=== PATIENT | female | born 1970 | race Caucasian/White ===

== ENCOUNTER 2019-09-13 13:15 | Emergency (ER) | payer OTHER ==
--- NOTE | 2019-09-13 13:26 | PDOC ---
Attending Attestation - Resident Resident Name: Eliana Walton - ED Attending Attestation I have performed the following: I have examined & evaluated the patient, The case was reviewed & discussed with the resident, I agree w/resident's findings & plan, Exceptions are as noted - HPI HPI: 09/13/19 13:23 49yo female with L hand with middle and ring finger lacerations. Pt was cutting a duck when she cut her fingers. Pt with 2 lacerations - 4th digit on the distal dip about 1cm in length without active bleeding, 3rd digit with 1.5cm lac to the volar aspect of the DIP joint. Tetanus is not utd. No other complaints. - Physicial Exam PE: 09/13/19 13:24 Gen: [id number], nad hand: L hand with 1.5cm laceration without active bleeding to the DIP of the 3rd digit on the palmar aspect of the hand, L hand with 1cm lac to the DIP of the 4th digit palmar aspect of the hand, no active bleeding, able to fully range the digits, superficial laceration with scant exposure of the subcutaneous fat, sensation intact, brisk cap refill - Medical Decision Making 09/13/19 13:25 a/p: 49yo female with 2 finger lac -will need suture repair -will need tetanus updated -will need abx 09/13/19 14:27 resident repairing the finger lacerations 09/13/19 15:10 lac has been repaired by the resident and the patient was placed in finger splints local wound care will place on abx given she was cutting into a duck and raw meat stable for dc to home Discharge - Discharge Information Problems reviewed: Yes Clinical Impression/Diagnosis: Laceration of finger of left hand Condition: Stable - Admission No - Additional Discharge Information Prescriptions: Clindamycin [Cleocin -] 450 mg PO Q8H #63 capsule - Follow up/Referral Referrals: Amilcar Ferrera MD [Primary Care Provider] - - Patient Discharge Instructions Patient Printed Discharge Instructions: DI for Laceration Repair - Post Discharge Activity
[2019-09-13] MEDS ORDERED: DIPHTH,PERTUSS(ACELL),TET 0.5 ML DISP.SYRIN IM ONE ×2 (13:27→13:52)
[2019-09-13 13:49] VITALS: BP 146/86; PULSE 74; TEMP 97.8; BMI 32.8
--- NOTE | 2019-09-13 15:12 | PDOC ---
History of Present Illness - General Chief Complaint: Laceration Stated Complaint: FINGER LACERATIONS Time Seen by Provider: 09/13/19 13:21 History Source: Patient Exam Limitations: No Limitations - History of Present Illness Initial Comments: 09/13/19 15:16 49y F with PMH of HTN presenting to the ER today for laceration when cutting duck meat. Pt cut her 3d and 4th digits while cutting uncooked duck meat. Denies numbness/tingling, inability to bend fingers. Last tetanus was 12 years ago. PMD: Maisha PMH: see hpi Meds: Allergies: PCN Past History - Medical History Allergies/Adverse Reactions: Allergies Allergy/AdvReac Type Severity Reaction Status Date / Time Penicillins Allergy Unknown Verified 09/13/19 13:24 Home Medications: Ambulatory Orders Cholecalciferol (Vitamin D3) [Vitamin D3] 2,000 unit PO DAILY 09/13/19 Clindamycin [Cleocin -] 450 mg PO Q8H #63 capsule 09/13/19 Hydrochlorothiazide [Hctz -] 25 mg PO DAILY 09/13/19 COPD: No HTN: Yes - Psycho-Social/Smoking History Smoking History: Never smoked - Substance Abuse Hx (Audit-C & DAST Scrn) How often the patient has a drink containing alcohol: Never Score: In Men: 4 or > Positive; In Women: 3 or > Positive: 0 Screen Result (Pos requires Nsg. Audit-10AR): Negative In the last yr the pt used illegal drug/Rx for NonMed reason: No Score: Yes response is considered Positive: 0 Screen Result (Positive result requires Nsg. DAST-10): Negative Review of Systems - Review of Systems Constitutional: No: Symptoms Reported HEENTM: No: Symptoms Reported Respiratory: No: Symptoms reported Cardiac (ROS): No: Symptoms Reported ABD/GI: No: Symptoms Reported Integumentary: Yes: See HPI Neurological: No: Symptoms reported *Physical Exam - Vital Signs Last Vital Signs Temp Pulse Resp BP Pulse Ox 97.8 F 74 16 146/86 99 09/13/19 13:19 09/13/19 13:19 09/13/19 13:19 09/13/19 13:19 09/13/19 13:19 - Physical Exam General Appearance: Yes: Nourished, Appropriately Dressed. No: Apparent Distress HEENT: positive: EOMI, MARIO Neck: positive: Trachea midline, Supple Respiratory/Chest: positive: Lungs Clear, Normal Breath Sounds Cardiovascular: positive: Regular Rhythm, Regular Rate Comments:: 09/13/19 15:17 radial pulses 2+ Gastrointestinal/Abdominal: positive: Normal Bowel Sounds, Soft. negative: Tender Musculoskeletal: negative: CVA Tenderness Extremity: positive: Normal Capillary Refill. negative: Swelling, Calf Tenderness Integumentary: positive: Normal Color, Dry, Warm, Other (laceration to distal phlanges digits 3 and 4 on L plantar surface, superficial. 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 NML intact, Fully Oriented, Alert, Normal Mood/Affect, Normal Response, Motor Strength 5/5 Procedures - Laceration/Wound Repair Left Distal Volar Finger 3rd digit Wound Length: to 2.5 cm Wound Explored: clean Wound's Depth, Shape: superficial, linear Irrigated w/ Saline: Yes Anesthesia: 1% Lidocaine Wound Repaired With: Sutures Suture Size/Type: 6:0, 5:0 Number of Sutures: 7 Left Distal Volar 4th digit Wound Length: to 2.5 cm Wound Explored: clean Wound's Depth, Shape: superficial, linear Irrigated w/ Saline: Yes Anesthesia: 1% Lidocaine Wound Repaired With: Sutures Suture Size/Type: 6:0 Number of Sutures: 6 ED Treatment Course - Medications Given in the ED: ED Medications Discontinued Medications Generic Name Dose Route Start Last Admin Trade Name Freq PRN Reason Stop Dose Admin Diphtheria/Tetanus/Acell Pertussis 0.5 ml 09/13/19 13:27 09/13/19 14:00 Boostrix - IM 09/13/19 13:28 0.5 ml .ONCE ONE Administration Medical Decision Making - Medical Decision Making 09/13/19 15:25 49y F with pmh of htn presenting to the er for laceration to fingers while cutting uncooked duck meat. vitals wnl pe notable for 1cm superficial lacerations to distal L digits 3-4 near DIP joints. see procedure note. lacerations repaired with a total of 13 sutures. pt tolerated procedure well. since pt was cutting uncooked meat, will give antibiotics to cover for organisms. Clindamycin prescribed. splint applied since laceration overlying joint spaces however did not penetrate joint space. -boostrix given dc home, discussed care instructions and return precautions with patient. pt verbalized understanding. advised to return in 1 week for removal. Discharge - Discharge Information Problems reviewed: Yes Clinical Impression/Diagnosis: Laceration of finger of left hand Qualifiers: Encounter type: initial encounter Finger: unspecified finger Damage to nail status: without damage Foreign body presence: without foreign body Qualified Code(s): S61.219A - Laceration without foreign body of unspecified finger without damage to nail, initial encounter Condition: Good Disposition: HOME - Admission No - Additional Discharge Information Prescriptions: Clindamycin [Cleocin -] 450 mg PO Q8H #63 capsule - Follow up/Referral Referrals: Amilcar Ferrera MD [Primary Care Provider] - - Patient Discharge Instructions Patient Printed Discharge Instructions: DI for Laceration Repair Additional Instructions: You were seen in the ER today for a laceration to the fingers. This was repaired with a total of 13 stitches (6 on the ring finger and 7 on the middle finger). Keep the area clean and dry. You can leave it open to air after 24-48 hours. Use only water to clean. Keep the splints on for a week and tape your fingers together. You should return in 1 week to get the stitches out. I have prescribed an antibiotic for you to take. It is called Clindamycin. Take 3 capsules 3 times a day for 7 days. Come back to the ER if you notice infection: worsening swelling in the fingers, the fingers look like they are changing color, you cannot bend the fingers, you have fever, there is redness going to the hand/wrist or if any new or concerning symptom develops. Thank you - Post Discharge Activity
== END 2019-09-13 15:19 | disposition home or self-care (01) ==
LOC: FER 13:15 → SUPCPDRO 13:15 → FER 15:19
PROC: 3E0234Z Introduction of Serum, Toxoid and Vaccine into Muscle, Percutaneous Approach (ICD-10-PCS; principal; 2019-09-13)
DX: S61.213A Laceration without foreign body of left middle finger without damage to nail, initial encounter (principal); S61.215A Laceration without foreign body of left ring finger without damage to nail, initial encounter
CPT/HCPCS: 90715; 99284-25

== ENCOUNTER 2019-09-25 17:46 | Emergency (ER) | payer OTHER ==
--- NOTE | 2019-09-25 17:57 | PDOC ---
Suture Removal/Wound Check HPI - History of Present Illness Chief Complaint: Suture/Staple Removal(Here) Stated Complaint: SUTURE REMOVAL Time Seen by Provider: 09/25/19 17:56 History Source: Yes: Patient Exam Limitations: Yes: No Limitations Treated at: [facility] ED Date of Last ED visit: 09/13/19 - Previous ED Treatment Type of procedure performed on last visit: Yes: Laceration Repair Tetanus Immunization: Yes: Given at last ED visit Antibiotics Prescribed: Yes (Completed Clindamycin Course) - Onset of Previous Treatment Date of Occurence: 09/13/19 Past History - Medical History Allergies/Adverse Reactions: Allergies Allergy/AdvReac Type Severity Reaction Status Date / Time Penicillins Allergy Unknown Verified 09/13/19 13:24 Home Medications: Ambulatory Orders Cholecalciferol (Vitamin D3) [Vitamin D3] 2,000 unit PO DAILY 09/13/19 Hydrochlorothiazide [Hctz -] 25 mg PO DAILY 09/13/19 COPD: No HTN: Yes - Psycho-Social/Smoking History Smoking History: Never smoked *Physical Exam - Physical Exam General Appearance: Yes: Nourished, Appropriately Dressed. No: Apparent Distress HEENT: positive: Normal Voice Neck: positive: Supple Respiratory/Chest: negative: Respiratory Distress Cardiovascular: positive: Regular Rate Medical Decision Making - Medical Decision Making 25 y/o female presenting for removal of sutures to left second and third digits. Completed course of PO abx. Denies worsening redness, purulent discharge, difficulty opening or closing hands/fingers, or systemic signs of infection. Sutures removed without difficulty. Area appears to be healing without signs of infection. Case discussed with ED Attending Dr. Serge Vu M.D., PGY3 Emergency Medicine Resident Discharge - Discharge Information Problems reviewed: Yes Clinical Impression/Diagnosis: Visit for suture removal Condition: Good Disposition: HOME - Admission No - Follow up/Referral Referrals: Amilcar Ferrera MD [Primary Care Provider] - - Patient Discharge Instructions Patient Printed Discharge Instructions: DI for Suture Removal Print Language: COMORAN - Post Discharge Activity
[2019-09-25 17:59] VITALS: BP 150/96; BMI 32.7
--- NOTE | 2019-09-25 18:05 | PDOC ---
Attending Attestation - Resident Resident Name: Timothy Vu - ED Attending Attestation I have performed the following: I have examined & evaluated the patient, The case was reviewed & discussed with the resident, I agree w/resident's findings & plan, Exceptions are as noted - HPI HPI: 49YOF with h/o HTN who presents for suture removal from left index and middle finger. She was seen for laceration on 09/13/19 here at [facility]. She was given Tdap update at the initial encounter and also tx with course of abx which she notes having completed. She denies any sxs of infection or dehiscence, no redness, tenderness, discharge, swelling, fever, etc. - Physicial Exam PE: 09/25/19 17:55 GENERAL: well-appearing, pleasant adult female, well kept, A/Ox4, no distress, answers questions appropriately HEENT: PERRLA, EOMI, moist mucous membranes NECK/BACK: no midline ttp, no spinal step-off or deformity, no hematoma, full ROM, neck supple CARDIOVASCULAR: regular rate/rhythm, no MGR, strong peripheral pulses, capillary refill <2 seconds, extremities wwp, no edema LUNGS/RESPIRATORY: no respiratory distress, CTAB GI/ABDOMEN: symmetric [id number], normoactive BS, soft, no ttp, no midline pulsatile masses : no CVA tenderness MSK/EXTREMITIES: no muscle atrophy, no acute deformity SKIN: lacerations to left index and middle fingers CDI without erythema or dehiscence or drainage, sutures initially in place, skin is otherwise warm and dry, no pallor, no jaundice, no rash, no pathologic-appearing bruising, no skin breakdown, no cuts, no lesions NEUROLOGICAL: GCS 15, CN II-XII grossly intact, 5/5 strength proximally and distally, no facial droop - Medical Decision Making 09/25/19 17:56 49YOF presents for simple suture removal and wound check. Initial Vital Signs BP 150/96 09/25/19 17:47 No e/o infection. HR 80 as palpated by me, RR 18. Sutures removed without issue, no wound dehiscence, see resident note. She is appropriate for discharge home with close outpatient f/u. Return precautions discussed. Discharge - Discharge Information Problems reviewed: Yes Clinical Impression/Diagnosis: Visit for suture removal Condition: Good Disposition: HOME - Admission No - Follow up/Referral Referrals: Amilcar Ferrera MD [Primary Care Provider] - - Patient Discharge Instructions Patient Printed Discharge Instructions: DI for Suture Removal Print Language: LUXEMBOURGER - Post Discharge Activity
== END 2019-09-25 18:04 | disposition home or self-care (01) ==
LOC: FER 17:46
DX: Z48.02 Encounter for removal of sutures (principal)
CPT/HCPCS: 99281-25